=== PATIENT | male | born 1960 | race Caucasian/White ===

== ENCOUNTER 2022-01-26 15:15 | Outpatient (CLI) | payer OTHER, SELFPAY ==
--- NOTE | 2022-01-26 16:00 | CRLHL7_ITS ---
For Patients: As a result of the Century Cures Act, medical imaging exams and procedure reports are released immediately into your electronic medical record. You may view this report before your referring provider. If you have questions, please contact your health care provider. INDICATION: Right leg midthigh bulge. TECHNIQUE: Ultrasound venous duplex lower right extremity. Compression venous exam was performed using rodriguez-scale, color Doppler, and spectral Doppler analysis. COMPARISON: None. FINDINGS: Deep veins: Sonographic imaging demonstrates the right common femoral, deep femoral, superficial femoral, popliteal, posterior tibial and the contralateral right common femoral veins to be fully compressible with normal color Doppler blood flow. Superficial veins: There is occlusive thrombus within the greater saphenous vein from the mid thigh to the distal calf with the largest clot burden in the midthigh. No surrounding hyperemia. No popliteal cyst. IMPRESSION: Occlusive thrombus within the greater saphenous vein from the midthigh to the distal calf. No surrounding hyperemia to indicate inflammation/thrombophlebitis. No deep venous thrombosis within the evaluated veins of the right lower extremity. Dictated by Cortes Campos MD @ 01/26/2022 6:05:35 PM (Electronically Signed)
== END 2022-01-26 15:16 | disposition home or self-care (01) ==
PROVIDERS: PCP Family Medicine; Visit Provider Student in an Organized Health Care Education/Training Program
DX: R22.41 Localized swelling, mass and lump, right lower limb (principal); I82.4Z1 Acute embolism and thrombosis of unspecified deep veins of right distal lower extremity; M79.604 Pain in right leg
CPT/HCPCS: 93971